=== PATIENT | male | born 1965 | race Caucasian/White ===

== ENCOUNTER 2018-12-14 11:14 | Outpatient (CLI) | payer MEDICAID, SELFPAY ==
[2018-12-15 10:25] LABS: PSA, Screening 1.2 ng/ml (0-3.5)
== END 2018-12-14 11:34 ==
PROVIDERS: PCP Emergency Medicine; Visit Provider Emergency Medicine
DX: Z12.5 Encounter for screening for malignant neoplasm of prostate (principal)
CPT/HCPCS: 36415; 84153

== ENCOUNTER 2020-01-03 09:35 | Outpatient (CLI) | payer MEDICAID, SELFPAY ==
[2020-01-03 13:24] LABS: ALT 50 U/L (16-63); AST 40 U/L (15-37); Albumin 4.3 g/dL (3.4-5.0); Alkaline Phosphatase 59 U/L (46-116); Anion Gap 12.3 mmol/L (3-11); BUN 18 mg/dL (7-18); Bilirubin, Direct 0.14 mg/dL (0.00-0.20); Bilirubin, Total 0.5 mg/dL (0.2-1.0); CO2 23.7 mmol/L (21.0-32.0); CREATININE 0.95 mg/dL (0.70-1.30); Calcium 9.7 mg/dL (8.5-10.1); Chloride 100 mmol/L (98-107); Glucose 106 mg/dL (74-106); Potassium 4.3 mmol/L (3.5-5.1); Sodium 136 mmol/L (136-145); Total Protein 7.8 g/dL (6.4-8.2)
[2020-01-03 14:12] LABS: GGT 248 U/L (15-85)
== END 2020-01-03 09:55 ==
PROVIDERS: PCP Emergency Medicine; Visit Provider Emergency Medicine
DX: I10 Essential (primary) hypertension (principal); Z00.00 Encounter for general adult medical examination without abnormal findings
CPT/HCPCS: 36415; 80048; 80076; 82977

== ENCOUNTER 2020-05-21 00:56 | Outpatient (CLI) | payer MEDICAID, SELFPAY ==
[2020-05-21 08:54] LABS: Anion Gap 10.5 mmol/L (3-11); BUN 18 mg/dL (7-18); CO2 25.5 mmol/L (21.0-32.0); CREATININE 1.13 mg/dL (0.70-1.30); Calcium 9.4 mg/dL (8.5-10.1); Chloride 103 mmol/L (98-107); Glucose 97 mg/dL (74-106); Potassium 4.3 mmol/L (3.5-5.1); Sodium 139 mmol/L (136-145); Uric Acid 8.5 mg/dL (3.5-7.2)
== END 2020-05-21 01:16 ==
PROVIDERS: PCP Emergency Medicine; Visit Provider Emergency Medicine
DX: I10 Essential (primary) hypertension (principal); M10.9 Gout, unspecified
CPT/HCPCS: 36415; 80048; 84550

== ENCOUNTER 2021-01-07 09:59 | Outpatient (REF) | payer MEDICAID, SELFPAY ==
[2021-01-07 14:09] LABS: Anion Gap 10.2 mmol/L (3-11); BUN 21 mg/dL (7-18); CO2 24.8 mmol/L (21.0-32.0); CREATININE 1.2 mg/dL (0.70-1.30); Calcium 9.8 mg/dL (8.5-10.1); Calculated LDL 155 mg/dL (<100); Chloride 101 mmol/L (98-107); Cholesterol 250 mg/dL (<200); Glucose 101 mg/dL (74-106); HDL Cholesterol 57 mg/dL (40-60); Potassium 4.5 mmol/L (3.5-5.1); Sodium 136 mmol/L (136-145); Triglyceride 192 mg/dL (<150)
== END 2021-01-07 10:00 | disposition home or self-care (01) ==
LOC: LBN 09:59
PROVIDERS: PCP Emergency Medicine; Visit Provider Emergency Medicine
DX: E78.5 Hyperlipidemia, unspecified (principal); I10 Essential (primary) hypertension
CPT/HCPCS: 80048; 80061

== ENCOUNTER 2021-05-05 11:04 | Emergency (ER) | payer MEDICAID, SELFPAY ==
[2021-05-05 11:11] VITALS: BP 178/110; PULSE 74; RESP 14; TEMP 36.5; O2SAT 96
--- NOTE | 2021-05-05 11:22 | ED.GENADUL_ITS ---
Discharge Plan Disposition Patient Disposition: HOME Condition: Stable Discharge Details Clinical Impression: Abdominal pain, Proteinuria, Elevated blood pressure reading Primary Care Provider: Adrian Magallon ED Provider: Ladarius Lennon Home Meds and New Rx's Prescriptions: Continued lisinopril 20 mg tablet 20 mg PO DAILY Qty: 90 RF: 4 pravastatin [Pravachol] 20 mg tablet 20 mg PO DAILY Qty: 90 RF: 4 ibuprofen [Advil] 200 MG tablet 3 tab PO DAILY PRNRF: 0 aspirin 81 MG tablet,chewable 81 mg PO DAILY RF: 0 amlodipine [Norvasc] 10 mg tablet 10 mg PO QAM Qty: 90 RF: 4 Discharge Instructions Instructions: Abdominal Pain (ED) Additional Instructions: CT imaging today did not reveal any acute disease. Your urinalysis showed that you had trace protein in your urine. Be sure to discuss this with your doctor. Your blood pressure was noted to be elevated today. Be sure to discuss this with your doctor as adjustments may be been made to your antihypertensive medication. Please contact your primary care physician to arrange follow-up. Return to the ER for any worsening or new concerning symptoms. Stand Alone Forms: Work Release Referrals: Adrian Magallon, DO [Primary Care Provider] - Medical Decision Making 1126? 56-year-old male referred from [facility] with 2 days of right lower quadrant abdominal pain with associated intermittent nausea. Patient is tender lateral right lower abdomen with no palpable hernia. No peritoneal findings. Plan to obtain CT of the abdomen pelvis to assess for acute surgical pathology including acute appendicitis. Consider other etiologies including hernia and less likely renal stone. --Labs reviewed and nondiagnostic. No leukocytosis. Proteinuria noted. 1325 --CT the abdomen pelvis was interpreted by radiology: No acute process, appendix visualized and normal. Results were discussed with the patient. Plan for outpatient follow-up. Usual customary discharge instructions reviewed with patient. HPI General Mode of arrival: ambulatory . Date/Time Provider Initiated Documentation: 05/05/21 11:20 . Limitations to Documentation: no limitations . Information obtained by: patient . HPI Narrative: 56-year-old male with no significant medical history sent from [facility] with right lower quadrant pain. Patient notes he has had right lower quadrant abdominal pain since Wednesday evening. Pain came on suddenly. He had associated nausea without vomiting. Pain is been moderate and persistent, worse postprandially this morning. No other modifiers. No associated fever, no testicular pain, no diarrhea. Related Data Home Medications Medication Instructions Recorded Confirmed ibuprofen [Advil] 3 tab PO DAILY PRN 03/14/13 05/05/21 aspirin 81 mg PO DAILY tab-cap 01/06/17 05/05/21 amlodipine 10 mg tablet 10 mg PO QAM #90 tab 12/23/20 05/05/21 lisinopril 20 mg tablet 20 mg PO DAILY #90 tab 01/07/21 05/05/21 pravastatin 20 mg tablet 20 mg PO DAILY #90 tab-cap 01/07/21 01/07/21 Previous Rx's Medication Instructions Recorded amlodipine 10 mg tablet 10 mg PO QAM #90 tab 12/23/20 lisinopril 20 mg tablet 20 mg PO DAILY #90 tab 01/07/21 pravastatin 20 mg tablet 20 mg PO DAILY #90 tab-cap 01/07/21 Allergies Allergy/AdvReac Type Severity Reaction Status Date / Time hydrochlorothiazide AdvReac Unknown NAUSEA Verified 05/05/21 10:26 General Stated Complaint: Abd Prob MARYJANE: 3 Review of Systems All systems reviewed & are unremarkable except as noted in HPI and below Constitutional Constitutional: Denies fever(s) Gastrointestinal Gastrointestinal: Reports as per HPI, Reports abdominal pain, Reports nausea and Denies vomiting Genitourinary Genitourinary: Reports as per HPI [facility] Medical History Alcohol abuse Alcohol dependence, daily use (08/01/14) Chest pain (01/06/17) neg stress echo 12/15 Depression Dermatitis Gout HTN (hypertension) Hyperlipidemia Hypertension Increased body mass index Vertigo Surgical History Colonoscopy - MAC (03/10/17) Family History Mother , AGE 70 Essential hypertension COPD (chronic obstructive pulmonary disease) Father , AGE 70 COPD (chronic obstructive pulmonary disease) Brother Throat cancer Maternal Grandfather , AGE 83 Heart disease Daughter No problems noted. Social History Smoking/Tobacco Use Status: Never Second Hand Exposure: Yes Smoking risk assessment performed?: Yes Alcohol Intake: current Alcohol Intake frequency: 3 or more drinks per day Alcohol type: hard liquor Drug use: Never Substance use type: does not use Caregiver/Support person: No Household members: significant other Housing: house Communication Needs: None Do you need help understanding health information?: Rarely Pets and animals: Yes Pets and animals: cat(s) Sexually active: Yes Do you think of yourself as: straight/heterosexual Current gender identity: male What is your relationship status?: living with partner How often do you talk on the phone with friends or family?: three or more times per week How often do you get together with friends or relatives?: once per week How often do you attend jehovah's witness or voodoo services?: decline to answer Do you belong to any clubs or organized social groups?: no Panel score (0-1 are the most socially isolated patients): 2 What type of physical activity do you participate in: none Frequency: does not exercise Dolores/Samaritan: None Special dolores needs: No Seatbelt use: sometimes Helmet use: Yes Helmet use: always 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 Do you feel safe at home: Yes Do you feel safe in your relationship?: Yes Exam Const General: cooperative and no acute distress HENMT Mouth: moist mucous membranes Eyes Conjunctivae: normal conjunctivae Sclera: normal sclerae Neck Neck: trachea midline and supple Resp Auscultation: clear to auscultation bilaterally, no rales, no rhonchi and no wheezes Cardio Rate: regular rate and not tachycardic Rhythm: regular rhythm GI Palpation: soft, not firm, no guarding, no masses, not rigid and tender in the RLQ (Laterally, focal); not at McBurney's point, with no rebound tenderness and Rovsing's sign negative Other: no hernia Skin General skin exam: no rashes or lesions noted Neuro General: patient alert, patient awake, patient oriented x3 and tone normal Extrem General: no edema Psych Appearance: grossly normal Mental Status: mental status grossly normal Course Vital Signs Vital signs: Vital Signs Temperature 36.5 C 05/05/21 11:11 Pulse 74 05/05/21 11:11 Respiratory Rate 14 05/05/21 11:11 Blood Pressure 178/110 H 05/05/21 11:11 Pulse Oximetry 96 05/05/21 11:11 Temperature 36.5 C 05/05/21 11:11 Temperature Source Skin 05/05/21 11:11 Pulse 74 05/05/21 11:11 Respiratory Rate 14 05/05/21 11:11 Respiratory Effort Non-Labored 05/05/21 11:17 Blood Pressure 178/110 H 05/05/21 11:11 Blood Pressure Position Sitting 05/05/21 11:11 Pulse Oximetry 96 05/05/21 11:11 Oxygen Delivery Method Room Air 05/05/21 11:11 Oxygen Flow Rate 0 05/05/21 11:11 Pain Level 3 05/05/21 11:17
[2021-05-05 11:54] LABS: Bilirubin Negative (Negative); Blood Negative (Negative); Clarity Clear (Clear); Glucose Negative (Negative); Ketones Negative (Negative); Leukocyte Esterase Negative (Negative); Nitrite Negative (Negative); Specific Gravity >= 1.030 (1.005-1.025); Urobilinogen 0.2 EU/dL (Up TO 0.2)
[2021-05-05] MEDS: Lactated Ringers 1,000 ML 125 ML IV (12:00)
[2021-05-05 12:02] LABS: Abs Immature Grans 0.03 10^3/uL (0.0-0.06); Absolute Basophil Count 0.06 10^3/uL (0.0-0.2); Absolute Eosinophil Count 0.11 10^3/uL (0.0-0.7); Absolute Lymphocyte Count 2.02 10^3/uL (1.2-3.4); Absolute Monocyte Count 0.82 10^3/uL (0.1-0.8); Absolute Neutrophil Count 5.83 10^3/uL (1.2-6.7); Basophils % 0.7; Eosinophils % 1.2; HGB 15.3 g/dL (13.5-17.5); Immature Grans % 0.3; Lymphocytes % 22.8; MCH 31.8 pg (27.0-33.0); MCHC 35.6 % (32.0-36.0); MCV 89.4 fL (80-95); MPV 9.8 fL (8.0-11.0); Monocytes % 9.2; Neutrophils % 65.8; Nucleated RBC 0 %; Platelet Count 200 10^3/uL (130-400); RBC 4.81 10^6/uL (4.36-5.78); RDW 12.4 % (11.8-14.1); RDW-SD 40.8 fL; WBC 8.87 10^3/uL (4.4-10.8)
[2021-05-05 12:06] LABS: Bacteria Negative HPF (Negative); C & S Indicated? No; Casts Negative LPF (Negative); Crystals Negative HPF (Negative); Epithelial Cells Rare HPF (Negative); Mucus Negative (Negative); RBC 0-2 HPF (0-2); WBC 0-2 HPF (0-5)
[2021-05-05 12:27] LABS: ALT 41 U/L (16-63); AST 25 U/L (15-37); Albumin 3.7 g/dL (3.4-5.0); Alkaline Phosphatase 64 U/L (46-116); Anion Gap 10.3 mmol/L (3-11); BUN 22 mg/dL (7-18); Bilirubin, Total 0.5 mg/dL (0.2-1.0); CO2 25.7 mmol/L (21.0-32.0); CREATININE 1.1 mg/dL (0.70-1.30); Calcium 9.1 mg/dL (8.5-10.1); Chloride 102 mmol/L (98-107); Glucose 105 mg/dL (74-106); Potassium 3.8 mmol/L (3.5-5.1); Sodium 138 mmol/L (136-145); Total Protein 7.4 g/dL (6.4-8.2)
[2021-05-05] MEDS: Normal Saline - Diluent 50 ML VIAL IV (13:06)
[2021-05-05] MEDS: Omnipaque 350 MG/ML 100 ML BTL IJ (13:10)
--- NOTE | 2021-05-05 13:11 | DI.CT_ITS ---
Exam(s) CT ABDOMEN PELVIS W EXAM: CT ABDOMEN PELVIS W CLINICAL HISTORY: RLQ pain 2 days TECHNIQUE: Imaging Protocol: Axial computed tomography images with coronal and sagittal reformatted images were created and reviewed CONTRAST MATERIAL: Intravenous: Omnipaque 350 Contrast volume:100 mL Oral: No COMPARISON: No exams were available for comparison FINDINGS: ABDOMEN: Lung Bases: Normal where visualized. Liver: Fatty liver. No measurable mass. Portal, Superior Mesenteric, and Splenic Veins: Unremarkable. Gallbladder and Biliary Tract: No radiodense calculus or dilation. Pancreas: Normal density, no abnormal calcifications or inflammatory process. Spleen: Normal. Adrenals: No masses seen. Kidneys: Normal size, contour and axis. No radiodense stones or obstructive uropathy. No masses seen. Abdominal Aorta: Abdominal portion non-dilated. Mild atherosclerosis. Bowel: No obstruction or bowel wall thickening. Normal appendix is visualized. Peritoneal Cavity: No ascites, collection or mesenteric inflammatory response. No free air. Lymph Nodes: Within normal limits. Bones: Within normal limits for the patient's age. Soft Tissues: Unremarkable. PELVIS: Bladder: Symmetric distention, no gross wall thickening. Reproductive Organs: Mildly enlarged prostate gland. Lymph Nodes: Within normal limits. Bones: Within normal limits for the patient's age. IMPRESSION: 1. No acute abdominal or pelvic process. 2. Normal appendix. 3. Results of this exam have been verbally communicated with provider. RADIATION DOSE DELIVERED: 1,318.65mGy.cm Total DLP DATA REPOSITORY: All CT scans at this facility are submitted to the National Radiology Data Registry (NRDR) Dose Index Registry (DIR) with the [employer] (ACR). RADIATION OPTIMIZATION: All CT scans at this facility use at least one of these dose optimization te chniques: automated exposure control; mA and/or kV adjustment per patient size (includes targeted exa ms where dose is matched to clinical indication); or iterative reconstruction.
[2021-05-05 13:42] VITALS: BP 161/98; PULSE 81; RESP 16; TEMP 36.5; O2SAT 94
== END 2021-05-05 13:40 | disposition home or self-care (01) ==
PROVIDERS: Emergency Provider Student in an Organized Health Care Education/Training Program; PCP Emergency Medicine
DX: R10.31 Right lower quadrant pain (principal); R80.9 Proteinuria, unspecified; R03.0 Elevated blood-pressure reading, without diagnosis of hypertension
CPT/HCPCS: 36415; 80053; 96360; 96361; 99285; 74177; 81003; 81015; 85025; 99283; J3490

== ENCOUNTER 2021-05-16 18:43 | Outpatient (REF) | payer MEDICAID, SELFPAY ==
[2021-05-16 18:25] LABS: Bilirubin Negative (Negative); Blood Negative (Negative); Clarity Clear (Clear); Glucose Negative (Negative); Ketones Negative (Negative); Leukocyte Esterase Negative (Negative); Nitrite Negative (Negative); Specific Gravity >= 1.030 (1.005-1.025); Urobilinogen 0.2 EU/dL (Up TO 0.2); pH 5.5 (5-8)
== END 2021-05-16 18:44 | disposition home or self-care (01) ==
LOC: LBN 18:43
PROVIDERS: PCP Emergency Medicine; Visit Provider Emergency Medicine
DX: R80.9 Proteinuria, unspecified (principal)
CPT/HCPCS: 81003

== ENCOUNTER 2021-09-15 03:06 | Outpatient (CLI) | payer MEDICAID, SELFPAY ==
[2021-09-15 09:12] LABS: Calculated LDL 96 mg/dL (<100); Cholesterol 228 mg/dL (<200); HDL Cholesterol 56 mg/dL (40-60); Triglyceride 382 mg/dL (<150)
[2021-09-15 09:34] LABS: Uric Acid 8.7 mg/dL (3.5-7.2)
== END 2021-09-15 03:07 | disposition home or self-care (01) ==
LOC: LBO 03:06
PROVIDERS: PCP Emergency Medicine; Visit Provider Emergency Medicine
DX: E78.5 Hyperlipidemia, unspecified (principal); R80.9 Proteinuria, unspecified
CPT/HCPCS: 36415; 80061; 84550

== ENCOUNTER 2021-10-30 02:15 | Outpatient (CLI) | payer MEDICAID, SELFPAY ==
[2021-10-30 08:31] LABS: C-Reactive Protein 0.33 mg/dL (0.0-0.3); Uric Acid 6.6 mg/dL (3.5-7.2)
== END 2021-10-30 02:16 | disposition home or self-care (01) ==
LOC: LBO 02:15
PROVIDERS: PCP Emergency Medicine; Visit Provider Emergency Medicine
DX: M10.9 Gout, unspecified (principal)
CPT/HCPCS: 36415; 84550; 86140

== ENCOUNTER 2022-09-15 13:58 | Day surgery (SDC) | payer MEDICAID, SELFPAY ==
--- NOTE | 2022-09-15 13:18 | W.ANESPRE ---
General Info Date of Service Date Performed: 09/15/22 Height: 5 ft 7 in Weight: 101 kg Body Mass Index (BMI): 34.9 Surgical Procedure: Operation Date: 09/15/22 16:40 Proposed Procedure Side Surgeon p Excision Infected Sebaceuos Cyst-Neck Renée Connell, DO Meds Allergies and Home Medications Allergies Allergy/AdvReac Type Severity Reaction Status Date / Time hydrochlorothiazide AdvReac Unknown NAUSEA Verified 08/10/22 12:54 Home Medication Medication Instructions Recorded ibuprofen 200 mg tablet (Advil) 3 tab PO DAILY PRN 03/14/13 aspirin 81 mg chewable tablet 81 mg PO DAILY 01/06/17 indomethacin 25 mg capsule 25 mg PO TID #30 caps 11/04/21 lisinopril 20 mg tablet 20 mg PO DAILY #90 tabs 02/17/22 rosuvastatin 10 mg tablet (Crestor) 10 mg PO DAILY #90 tabs 06/24/22 allopurinol 300 mg tablet 300 mg PO DAILY #90 tabs 08/10/22 amlodipine 10 mg tablet (Norvasc) 10 mg PO QAM #90 tabs 08/10/22 PFSH Active Problems Active Problems: Problem Status Onset Code Sebaceous cyst L72.3 Gout M10.9 Proteinuria R80.9 Vertigo R42 Hydrocele N43.3 Spermatocele N43.40 Alcohol dependence, daily use 08/01/14 F10.20 Dermatitis L30.9 Hyperlipidemia E78.5 Hypertension I10 Increased body mass index R63.8 Medical History Medical History (Updated 08/10/22 @ 13:10 by Maik Mayo NP) Chest pain (01/06/17) neg stress echo 12/15 Surgical History Surgical History Colonoscopy - MAC (03/10/17) Tobacco Smoking/Tobacco Use Status: Never Passive smoking exposure: Yes Second hand exposure: Yes Alcohol Alcohol Intake: current Alcohol intake frequency: 3 or more drinks per day Alcohol type: hard liquor Substance Use Substance use: Never Substance use type: does not use Vital Signs and Lab Results Vital Signs Most Recent Vital Signs in EMR: Temp Pulse Resp BP Pulse Ox 36.6 C 88 18 154/86 H 96 09/15/22 14:12 09/15/22 14:12 09/15/22 14:12 09/15/22 14:12 09/15/22 14:12 Lab Results Blood Type / Crossmatch: No Data to Display Complete Blood Count: No Data to Display Complete Metabolic Panel: No Data to Display Liver Function Panel: No Data to Display Coagulation Panel: No Data to Display Cardiac Panel: No Data to Display Arterial Blood Gas: No Data to Display Venous Blood Gas: No Data to Display Pancreas Panel: No Data to Display Thyroid Panel: No Data to Display Infectious Disease: No Data to Display Blood Cultures: No Data to Display Toxicology Panel: No Data to Display Imaging and Studies Imaging and Studies Study information below may be from another EMR and interpreted by another provider. Please see original notes in EMR for more complete details. Stress Test Summary: 11/2016: normal response to stress, no chest pain. 94% predicted HR Anesthesia Assessment and Plan Anesthesia History Personal History: No History of Anesthesia Complications Family History: No Family History of Anesthesia Complications Exercise Tolerance Exercise Tolerance: Metabolic Equivalents>4 Cardiac & Pulmonary Exam Cardiac Exam: Normal S1/S2 Heart Sounds Pulmonary Exam: Clear Bilateral Breath Sounds Implantable Cardiac Device Does patient have a Pacemaker or an ICD?: No Airway Exam Known Difficult Airway: No Mallampati Class: 3 Mouth Opening: Normal (> 3cm) Thyromental Distance: Greater than 3 cm Neck Range of Motion: Full ROM Neck Circumference: Normal Teeth Condition: Normal Dentition ASA Classification ASA Score: ASA 2 Emergency Case?: No NPO Status NPO Status: NPO Clears >2 hours, Solids >8 hours Anesthesia Plan Resuscitation Status: Full Code Anesthesia Technique: MAC Anesthesia Airway Planned: Natural Airway Monitors Used: Standard Monitors Preoperative Comments:: 57 yo male for cyst removal. Sig PMHx: daily EtOH, HTN, vertigo, never smoker, gout. Discussed MAC with patient, agrees to proceed.
[2022-09-15 14:12] VITALS: BP 154/86; PULSE 88; RESP 18; TEMP 36.6; O2SAT 96
[2022-09-15] MEDS: Gabapentin 300 MG CAP 600 MG PO (14:24)
[2022-09-15] MEDS: Acetaminophen 500 MG TAB 1000 MG PO (14:24)
[2022-09-15] MEDS: Lactated Ringers 1,000 ML 80 ML IV (14:32)
[2022-09-15 14:52] VITALS: BMI 34.9
--- NOTE | 2022-09-15 15:36 | W.PM.HP.N ---
Date of service: 09/15/22 Time of Service: 15:36 Assessment and Plan Assessment and plan (1) Sebaceous cyst: Status: Acute Assessment and plan: ? Plan incision and drainage. We will need to leave it open and to packing. Risks include but not limited to: Bleeding, infection, pneumonia, blood clots, complications of anesthesia. will need to heal by secondary intent and he will need to do daily packing changes. There will be a scar. There is a risk of recurrence. Complications of anesthesia. Other on for told complications. (2) Infected sebaceous cyst of skin: Status: Acute (3) Alcohol dependence, daily use: Status: Acute (4) Hyperlipidemia: Status: Acute (5) Hypertension: Status: Acute (6) Increased body mass index: Status: Acute (7) Gout: Status: Chronic History of Present Illness Narrative: recurrent infected sebaceous cyst R posterior neck. He is not on steroids. He is not diabetic. Its been red hot and swollen for the last 3 days. He has had an incision and drainage done in the past. He is very needle phobic. NOn-smoker He denies chest pain or shortness of breath with physical activity Review of Systems All systems reviewed & are unremarkable except as noted in HPI and below PFSH All Active Problems (Updated 09/15/22 @ 15:49 by Renée Connell DO) Infected sebaceous cyst of skin (Acute) Sebaceous cyst (Acute) Gout (Chronic) Proteinuria (Acute) Vertigo (Acute) Hydrocele (Acute) Spermatocele (Acute) Alcohol dependence, daily use (Acute 08/01/14) Dermatitis (Acute) Hyperlipidemia (Acute) Hypertension (Acute) Increased body mass index (Acute) Medical History (Updated 09/15/22 @ 15:49 by Renée Connell DO) Chest pain (01/06/17) neg stress echo 12/15 Surgical History Colonoscopy - MAC (03/10/17) Family History Mother , AGE 70 Essential hypertension COPD (chronic obstructive pulmonary disease) Father , AGE 70 COPD (chronic obstructive pulmonary disease) Brother Throat cancer Maternal Grandfather , AGE 83 Heart disease Daughter No problems noted. Social History Smoking/Tobacco Use Status: Never Second Hand Exposure: Yes Smoking risk assessment performed?: Yes Alcohol Intake: current Alcohol Intake frequency: 3 or more drinks per day Alcohol type: beer Drug use: Never Substance use type: does not use Caregiver/Support person: No Household members: significant other Housing: house Communication Needs: None Do you need help understanding health information?: Rarely Pets and animals: Yes Pets and animals: cat(s) Sexually active: Yes Do you think of yourself as: straight/heterosexual Current gender identity: male What is your relationship status?: living with partner How often do you talk on the phone with friends or family?: three or more times per week How often do you get together with friends or relatives?: once per week How often do you attend congregation or nondenominational services?: decline to answer Do you belong to any clubs or organized social groups?: no Panel score (0-1 are the most socially isolated patients): 2 What type of physical activity do you participate in: none Frequency: does not exercise Dolores/Pentecostal: None Special dolores needs: No Seatbelt use: sometimes Helmet use: Yes Helmet use: always 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 Do you feel safe at home: Yes Do you feel safe in your relationship?: Yes Meds Allergies and Home Medications Allergies Allergy/AdvReac Type Severity Reaction Status Date / Time hydrochlorothiazide AdvReac Unknown NAUSEA Verified 08/10/22 12:54 Home Medications Medication Instructions Recorded Confirmed Type ibuprofen 200 mg tablet (Advil) 3 tab PO DAILY PRN 03/14/13 09/15/22 History aspirin 81 mg chewable tablet 81 mg PO DAILY 01/06/17 09/15/22 History indomethacin 25 mg capsule 25 mg PO TID #30 caps 11/04/21 09/15/22 Rx lisinopril 20 mg tablet 20 mg PO DAILY #90 tabs 02/17/22 09/15/22 Rx rosuvastatin 10 mg tablet (Crestor) 10 mg PO DAILY #90 tabs 06/24/22 09/15/22 Rx allopurinol 300 mg tablet 300 mg PO DAILY #90 tabs 08/10/22 09/15/22 Rx amlodipine 10 mg tablet (Norvasc) 10 mg PO QAM #90 tabs 08/10/22 09/15/22 Rx Exam Narrative Exam Narrative: PHYSICAL EXAM GENERAL APPEARANCE: Alert, healthy appearance, oriented, in no acute distress SKIN: see below HYDRATION: Well hydrated HEAD, EYES, EARS, NECK, THROAT: Head is normocephalic, pupils equal, round, reactive to light and accommodation, ocular movement intact, sclera clear and no jaundic NECK: 4 x 4 x 4 cm infected sebaceous cyst erythematous, tender, swollen. LUNGS: normal respiration/nl chest excursion. ?Clear to auscultation B/l no R/R/W ?HEART: Regular rate and rhythm, EXTREMITY: No edema or cyanosis? no leg pain, redness, swelling.? No IV infiltration ABDOMEN: Nontender to palpation, soft 4 x 4 x 4 cm infected sebaceous cyst. Results Last Vital Signs Temp 36.6 C 09/15/22 14:12 Pulse 88 09/15/22 14:12 Resp 18 09/15/22 14:12 BP 154/86 H 09/15/22 14:12 Pulse Ox 96 09/15/22 14:12
[2022-09-15] MEDS: ceFAZolin 2 GM/50 ML BAG IVPB (16:55)
[2022-09-15] MEDS: Bupivacaine 0.5% Pres-Free W/EPI 10 ML VIAL (17:23)
[2022-09-15 17:30] VITALS: BP 131/80; PULSE 89; RESP 17; TEMP 36.8; O2SAT 94
--- NOTE | 2022-09-15 17:33 | W.PM.DSUDISC ---
Discharge Plan Disposition Patient Disposition: HOME Discharge Details Attending Provider: Renée Connell Primary Care Provider: Maik Mayo Home Meds and New Rx's Prescriptions: New cephalexin 500 mg tablet 500 mg PO TID 5 Days Qty: 15 0RF tramadol [Ultram] 50 mg tablet 50 mg PO Q6H PRNQty: 7 0RF Continued indomethacin 25 mg capsule 25 mg PO TID Qty: 30 3RF Rx Instructions: administer with food or milk. take one three times daily for five days when gout occurs lisinopril 20 mg tablet 20 mg PO DAILY Qty: 90 4RF ibuprofen [Advil] 200 MG tablet 3 tab PO DAILY PRN aspirin 81 MG tablet,chewable 81 mg PO DAILY Label Comments: States he takes it occasionally. rosuvastatin [Crestor] 10 mg tablet 10 mg PO DAILY Qty: 90 3RF allopurinol 300 mg tablet 300 mg PO DAILY Qty: 90 3RF amlodipine [Norvasc] 10 mg tablet 10 mg PO QAM Qty: 90 3RF Discharge Instructions Additional Instructions: Caring for Your Incision Pain Control Use ice!? Ice keeps the swelling down and swelling is what causes pain.? Never apply ice directly to the skin.? Wrap it in a towel or cloth.? Apply ice 20 minutes on and 20 minutes off for pain control.? Use as needed. Take tylenol 500 mg by mouth with food every 4 hours as needed for pain. Or ibuprofen 600 mg by mouth with food every 6 hours as needed for pain.? Home care ? Always wash your hands before touching your incision. ? Keep the incision clean, dry, and out of water, keep the incision out of water. ? Do not to pick at the scabs. Scabs help protect the wound. ? You can take a shower in 24 hours and wash the incision with soap and water. Pat dry/don?t scrub. No swimming or hot tubs for two weeks. ? Removing the Old Dressing Follow these steps to remove your dressing: ? Wash your hands thoroughly with soap and warm water before and after each dressing change. Remove the old dressing. If it is sticking to your skin, wet it with warm water to loosen it. ? Remove the gauze pads or packing tape from inside your wound. Take a shower and wash w/ soap and water. ? Changing Your Dressing Follow these steps to put a new dressing on: ? Place the gauze pads or packing tape in your wound. Carefully fill in the wound and any spaces under the skin.? Use a cotton tip applicator to gently push the packing material into the wound. ? Cover the wet gauze or packing tape with a large dry dressing pad. Use tape or rolled gauze to hold this dressing in place. ? Wash your hands again when you are finished. ? Make sure any clothing that touches the incision is loose-fitting. This will prevent rubbing. ? Try to avoid from rough play, contact sports, or physical activities for two weeks. This can put you at risk of opening the incision. ? Make sure you avoid doing things that could cause dirt or sweat to get in or on the incision. As your incision heals, the skin may appear pink or red. It may also feel slightly bumpy or raised. This is called a healing ridge. Over time, the color should fade and the raised skin will become less noticeable. -antibiotics -pain plan ? When to seek medical care ? More pain, redness, swelling, bleeding, or foul-smelling discharge around the incision area ? Fever of 101?F (38.3?C) or higher, or as directed by your child's healthcare provider ? Shaking chills ? Vomiting or nausea that doesn?t go away ? Numbness, coldness, or tingling around the incision area, or changes in skin color ? Opening of the sutures or wound Stitches or allie come apart or fall out or surgical tape falls off before 7 days, or as directed by your healthcare provide. F/u in Surgery clinic Wednesday with Dr. Connell [phone] Activity:: see above Remove Dressings/Wound Care:: 24 hours Shower/Bathe:: 24 hours Diet:: As Tolerated DS: Diagnosis Discharge Diagnosis (1) Infected sebaceous cyst of skin: Status: Acute (2) Sebaceous cyst: Status: Acute (3) Alcohol dependence, daily use: Status: Acute (4) Hyperlipidemia: Status: Acute (5) Hypertension: Status: Acute (6) Increased body mass index: Status: Acute (7) Gout: Status: Chronic
--- NOTE | 2022-09-15 17:42 | W.PM.OP ---
Date of service: 09/15/22 Time of Service: 17:42 Operative Note Operative Note DATE OF PROCEDURE: 09/15/22 PRE-OP DIAGNOSIS: Infected sebaceous cyst PROCEDURE: Incision and drainage of sebaceous cyst SURGEON: Renée Connell ANESTHESIA TYPE: Local By Surgeon and MAC Refer to Anesthesia Record ESTIMATED BLOOD LOSS: 10 PATHOLOGY: other COMPLICATIONS: None Patient was transported to: same day Patient's condition: stable Procedure Description: Patient is a 57-year-old male with a recurrent infected sebaceous cyst. And he is here today for incision and drainage and removal. Informed consent is obtained explaining risks of the benefits of the procedure including but not limited to: Bleeding, infection, pneumonia, blood clots, complications from anesthesia, recurrence, scarring, and he understands that he will need to do packing and dressing changes and it will need to heal by secondary intent. Patient is marked in preop. He is brought to the operative suite and placed in the left lateral gluteal decubitus position with all bony surfaces padded. Anesthesia is administered per the department of anesthesia. He was prepped and draped using ChloraPrep scrub solution. Timeout is performed. 30 cc of 1% lidocaine with epi is used for local anesthesia. The lesion is 4 x 4 x 4 cm. A 2 cm elliptical incision is made over the apex. Obvious sebaceous cyst and contents and abscess are expressed. Cultures are taken. The entirety of the cyst is removed including the wall. This is achieved with sharp dissection down to the fat. Electrocautery is used to provide hemostasis. Irrigated with a liter of saline. It is packed with plain packing and sterile compression dressing is applied. Patient tolerated procedure well without complication and transferred to same-day surgery in stable condition. Patient is given instructions in wound care, activity, warning signs, and a follow-up appointment in the office. He was given a prescription for Keflex and Ultram. If there are any questions or concerns contact the office or the ER after hours.
--- NOTE | 2022-09-15 17:47 | W.ANESPOSTOP ---
Postoperative Evaluation Date, Time and Location Date Performed: 09/15/22 Time Performed: 17:47 Patient Location: Day [facility] Unit Vital Signs Most Recent Imported Vital Signs: Most Recent Vital Signs Temp Pulse Resp BP Pulse Ox 36.6 C 88 18 154/86 H 96 09/15/22 14:12 09/15/22 14:12 09/15/22 14:12 09/15/22 14:12 09/15/22 14:12 Most Recent Manually Entered Vital Signs: Adult Blood Pressure: 138/75 Heart Rate: 76 Respirations: 16 Oxygen Saturation (%): 96 Temperature (C): 36.3 C Pain Score (0-10 Scale): 0 Assessment Mental Status: Awake (Alert & Oriented to Patient Baseline) Airway and Respiratory Function: Patent airway with normal (patient baseline) respiratory exam Cardiovascular Function: Hemodynamically Stable Hydration Status: Adequately Hydrated Nausea & Vomiting: No Nausea or Vomiting Pain: Pt. Denies Any Pain Peripheral Nerve Block: Patient did not receive a nerve block
[2022-09-15 17:48] VITALS: BP 138/75; PULSE 76; RESP 16; TEMPC 36.3; O2SAT 96
[2022-09-15 18:00] VITALS: BP 132/82; PULSE 87; RESP 17; TEMP 36.8; O2SAT 93
== END 2022-09-15 18:00 | disposition home or self-care (01) ==
PROVIDERS: PCP Nurse Practitioner Family; Visit Provider Surgery
PROC: (CPT 11424; principal; 2022-09-15 16:30)
DX: L72.3 Sebaceous cyst (principal); I10 Essential (primary) hypertension; E78.5 Hyperlipidemia, unspecified; F10.20 Alcohol dependence, uncomplicated
CPT/HCPCS: 11424; 87070; 87205; J0690; J2250; J2405; J2704

== ENCOUNTER 2023-02-24 09:10 | Outpatient (CLI) | payer MEDICAID, SELFPAY ==
--- NOTE | 2023-02-24 10:19 | DI.US_ITS ---
APPROVED REPORT EXAM: Comprehensive 2D, Doppler, and color-flow Echocardiogram Patient Location: Out-Patient Video Production Assistant: Enoch Velasquez RDMS, RVT Indications: Murmur and periodic CP Other Information Study Quality: Adequate Conclusion Normal left ventricular wall thickness and chamber size. Estimated ejection fraction is 65 to 70%. Wall motion is normal Normal right ventricular size and systolic function Both atria are normal in size Aortic valve is calcified and trileaflet with mild to moderate aortic stenosis. Peak gradient is 34, mean 21 mmHg. Calculated aortic valve area is 1.19 cm??. There is no aortic regurgitation Mildly dilated ascending aorta 3.64 cm Wall motion Left Ventricle The left ventricle is normal size. The left ventricular systolic function is normal. The left ventric ular ejection fraction is within the normal range. There is normal left ventricular wall thickness. T here is normal LV segmental wall motion. There is no ventricular septal defect visualized. LVEF is 65 -70%. Right Ventricle The right ventricle is normal size. The right ventricular systolic function is normal. Atria The left atrium size is normal. The right atrium size is normal. The interatrial septum is intact wit h no evidence for an atrial septal defect. Aortic Valve Aortic valve is calcified. Aortic valve is trileaflet. Mild to moderate aortic stenosis. Highest mean aortic valve gradient is 20.7 mmHg. Peak aortic valve gradient is 34.2 mmHg. Calculated HELEN by the c ontinuity equation is 1.19 cm2. No aortic regurgitation is present. Mitral Valve The mitral valve is normal in structure. No evidence of mitral valve stenosis. Trace mitral regurgita tion. Tricuspid Valve The tricuspid valve is normal in structure. There is no tricuspid valve stenosis. Trace tricuspid reg urgitation. Unable to assess PA pressure. Pulmonic Valve The pulmonary valve is normal in structure. There is no pulmonic valvular stenosis. There is no pulmo tre valvular regurgitation. Great Vessels The aortic root is normal in size. The pulmonary artery is normal. The ascending aorta is mildly dila ramesh. Aortic arch is not well visualized. IVC is normal in size and collapses >50% with inspiration. Pericardium There is no pericardial effusion. 2D Dimensions IVSD d PLAX 1.05 cm M: 0.6-1.2 LV Vol A2C d MOD 84.7 mL LVPW d PLAX 1.06 cm M: 0.6 - 1.2 LV Vol A4C d MOD 140.3 mL LVID d PLAX 5.02 cm M: 4.2 - 5.8 LA vol/ BSA A4C s A-L 21.1 mL/m2 LVDs 2.97 cm M: 2.5 - 4.0 LA Area A4C s MOD 16.63 cm2 Ao Root d 2.73 cm M: 3.1 - 3.7 LV EF A4C MOD 65.1 % Ao Asc Diam d 3.64 cm M: 2.6 - 3.4 LV EF A2C MOD 69.5 % LV EF Teichholz 71.4 % LV EF Biplane MOD 64.4 % LVEF (Villela's) 64.39 % M: 52 - 72 SV 70.69 mL LV Volume 79.85 mL M: 62 - 150 SV Index 32.15 mL/m2 LV Volume Index 36.29 mL/m2 M: 34 - 74 LV Vol Biplane MOD 109.8 mL FS 40.80 % M-Mode TAPSE 2.48 cm (M/F) >1.7 LV Diastology MV E' medial 0.100 (>0.07 m/s) E/A Ratio 0.9 LV E/e MED 8.95 (<14) MV E Vmax 0.90 (0.4-1.3 m/s) MV E' lateral 0.116 (>0.1 m/s) MV A Vmax 0.95 (0.4-1.3 m/s) LV E/e LAT 7.70 (<14) MV E/A Ratio 0.92 MV E/E' medial 8.98 MV E/E' lateral 7.75 Aortic Valve LVOT Area 2.85 cm2 AoV Area Vmax 1.19 cm2 LVOT Vmax 1.22 m/s AoV Area/ BSA (Vmax) 0.54 cm2/m2 LVOT Mean Cesar. 0.90 m/s HELEN Mean Cesar. 1.18 cm2 LVOT Peak Grad 5.9 mmHg HELEN Mean Cesar. Index 0.53 cm2/m2 LVOT Mean Grad 3.5 mmHg LVOT VTI 0.250 m LVOT Diam s 1.90 cm AoV Vmax 2.92 m/s Velocity Ratio 0.42 AoV Mean Cesar. 2.19 m/s AoV Peak Grad 34.2 mmHg LVOT SV 71.34 mL AoV Mean Grad 20.7 mmHg AoV VTI 0.544 m AoV Area VTI 1.31 cm2 AoV Area/ BSA (VTI) 0.60 cm/m2 Mitral Valve MV DT 214 (160-240 msec) MV PHT 62 msec MV Area PHT 3.54 cm2 MV VTI 0.329 m MV Area VTI 2.17 (4.0-6.0 cm2) Pulmonary Valve PV Vmax 1.78 (0.5-1.5 m/s) RVOT Peak Gr. 3.61 mmHg PV Peak Grad 12.6 mmHg RVOT Mean Gr. 1.95 mmHg PV Mean Grad 6.6 mmHg RVOT VTI 0.182 m PV VTI 0.281 m RVOT Vmax 0.95 m/s Tricuspid Valve RA Pressure 3.00 mmHg
== END 2023-02-24 09:30 ==
LOC: DI 09:10
PROVIDERS: PCP Nurse Practitioner Family; Visit Provider Nurse Practitioner Family
DX: R01.1 Cardiac murmur, unspecified (principal)
CPT/HCPCS: 93306

== ENCOUNTER 2023-02-26 02:03 | Outpatient (CLI) | payer MEDICAID, SELFPAY ==
[2023-02-26 08:38] LABS: CREATININE 1.1 mg/dL (0.70-1.30); Calculated LDL 97 mg/dL (<100); Cholesterol 207 mg/dL (<200); HDL Cholesterol 68 mg/dL (40-60); Potassium 3.8 mmol/L (3.5-5.1); Triglyceride 210 mg/dL (<150)
[2023-02-26 20:52] LABS: PSA, Screening 1.2 ng/mL (<=3.5)
== END 2023-02-26 02:04 | disposition home or self-care (01) ==
LOC: LBO 02:03
PROVIDERS: PCP Nurse Practitioner Family; Visit Provider Nurse Practitioner Family
DX: I10 Essential (primary) hypertension (principal); E78.5 Hyperlipidemia, unspecified; R35.0 Frequency of micturition; Z12.5 Encounter for screening for malignant neoplasm of prostate
CPT/HCPCS: 36415; 80061; 84153; 82565; 84132

== ENCOUNTER 2024-03-07 04:36 | Outpatient (CLI) | payer MEDICAID, SELFPAY ==
[2024-03-07 08:05] LABS: CREATININE 1.1 mg/dL (0.70-1.30); Calculated LDL 97 mg/dL (<100); Cholesterol 197 mg/dL (<200); Estimated GFR 77.81 (mL/min/1.73m2); HDL Cholesterol 58 mg/dL (40-60); Potassium 4.2 mmol/L (3.5-5.1); Triglyceride 212 mg/dL (<150)
[2024-03-07 08:10] LABS: Hemoglobin A1C 5.5 % (<5.7)
== END 2024-03-07 04:37 | disposition home or self-care (01) ==
LOC: LBO 04:36
PROVIDERS: PCP Nurse Practitioner Family; Visit Provider Nurse Practitioner Family
DX: I10 Essential (primary) hypertension (principal); Z13.1 Encounter for screening for diabetes mellitus; E78.5 Hyperlipidemia, unspecified
CPT/HCPCS: 36415; 80061; 82565; 83036; 84132

== ENCOUNTER → 2024-03-15 02:30 | Outpatient (CLI) | payer MEDICAID, SELFPAY ==
--- NOTE | 2024-03-15 07:30 | DI.US_ITS ---
APPROVED REPORT EXAM: Comprehensive 2D, Doppler, and color-flow Echocardiogram Patient Location: Out-Patient Inventory Control Specialist: Vita Linares RDCS (AE) Indications: Heart Murmur Other Information Study Quality: Adequate Conclusion Normal left ventricular wall thickness and chamber isze. EF is 59%. Wall motion is normal Normal right ventricular size and function both atria are normal in size. The aortic valve is calcified and probably trileaflet. There is moderate aortic stenosis. Peak gradie nt is41, mean 27 mmHg.Calculated aortic valve area is 1 cm2. There is no aortic regurgitation Compared to echocardiogram from 2022, degree of aortic stenosis has worsened, now moderate Wall motion Left Ventricle The left ventricle is normal size. The left ventricular systolic function is normal. The left ventric ular ejection fraction is within the normal range. There is normal left ventricular wall thickness. T here is normal LV segmental wall motion. There is no ventricular septal defect visualized. LVEF is 59 %. Right Ventricle The right ventricle is normal size. The right ventricular systolic function is normal. Atria The left atrium size is normal. The right atrium size is normal. The interatrial septum is intact wit h no evidence for an atrial septal defect. Aortic Valve Aortic valve is calcified. Aortic valve is probably trileaflet. Moderate aortic stenosis. Peak aortic valve gradient is 41.5mmHg. Highest mean aortic valve gradient is 27.39mmHg. Calculated HELEN by the c ontinuity equation is 1.0cm2. No aortic regurgitation is present. Mitral Valve The mitral valve is normal in structure. No evidence of mitral valve stenosis. Trace mitral regurgita tion. Tricuspid Valve The tricuspid valve is normal in structure. There is no tricuspid valve stenosis. Trace tricuspid reg urgitation. Unable to assess PA pressure. Pulmonic Valve Pulmonic valve is not well visualized. There is no pulmonic valvular stenosis. There is no pulmonic v alvular regurgitation. Great Vessels The aortic root is normal in size. The ascending aorta is normal in size. Aortic arch is not well vis ualized. The IVC collapses <50% with inspiration. Pericardium There is no pericardial effusion. 2D Dimensions IVSD d PLAX 0.90 cm M: 0.6-1.2 Ao Root d 2.68 cm M: 3.1 - 3.7 LVPW d PLAX 0.89 cm M: 0.6 - 1.2 Ao Asc Diam d 3.29 cm M: 2.6 - 3.4 LVID d PLAX 5.13 cm M: 4.2 - 5.8 LVDs 3.53 cm M: 2.5 - 4.0 LV EF Teichholz 58.7 % FS 31.27 % LV EDV (Teich) 125.7 mL LV ESV (Teich) 51.9 mL M-Mode TAPSE 2.40 cm (M/F) >1.7 Auto EF LV EDV A4C 133.0 mL LV EDV A2C 125.9 mL LV EDV BP 129.3 mL LV ESV A4C 55.4 mL LV ESV A2C 53.5 mL LV ESV BP 54.4 mL LVEF(%) A4C 58.3 % LVEF(%) A2C 57.5 % LVEF(%) BP 57.9 % LV SV A4C 77.6 ml LV SV A2C 72.5 ml LV SV BP 74.9 ml LV CO A4C 5.7 L/min LV CO A2C 5.4 L/min LV CO BP 5.5 L/min HR A4C 73.18 BPM HR A2C 74.54 BPM LV EDV Index (BP) LA Volume LA Length A4C 5.5 cm LA Length A2C 5.0 cm LA Area A4C s 16.91 cm2 LA Area A2C s 14.93 cm2 LA Vol A4C A-L 44.23 mL LA Vol A2C A-L 37.78 mL LA Vol Biplane A-L 42.8 mL LA Vol/BSA A4C A-L LA Vol/BSA A2C A-L LA Vol/BSA BP A-L 19.1 mL/m2 LA Vol A4C MOD 40.5 mL LA Vol A2C MOD 35.9 mL LA Vol BP MOD 39.8 mL RA Volume RA Area A4C 15.7 cm2 RA ESV A4C (A-L) 42.2mL RA Vol/BSA A4C A-L RA Length A4C 4.9 cm RA ESV A4C (MOD) 39.9mL LV Diastology MV E' medial 0.087 (>0.07 m/s) MV E Vmax 0.83 (0.4-1.3 m/s) MV E/E' MED 9.46 (<14) MV A Vmax 1.00 (0.4-1.3 m/s) MV E' lateral 0.097 (>0.1 m/s) E/A Ratio 0.8 MV E/E' LAT 8.51 (<14) MV E' Average 0.092 m/s MV E/E'(average) 8.96 Aortic Valve AoV Vmax 3.22 m/s LVOT Vmax 1.03 m/s AoV Peak Grad 41.5 mmHg LVOT Peak Grad 4.2 mmHg AoV Area (Vmax) 1.01 cm2 LVOT VTI 0.215 m AoV VTI 0.681 m LVOT Mean Grad 2.6 mmHg AoV Mean Cesar. 2.52 m/s LVOT SV 68.00 mL AoV Mean Grad 27.4 mmHg LVOT Diam s 2.00 cm AoV Area (VTI) 1.00 cm2 Velocity Ratio 0.32 Mitral Valve MV DT 221 (160-240 msec) MV Vmax TIPS 1.00 m/s MV Mean Grad 1.7 (<2mmHg) MV VTI 0.300 m Pulmonary Valve PV Vmax 1.82 (0.5-1.5 m/s) RVOT Vmax 0.95 m/s PV Peak Grad 13.2 mmHg RVOT Peak Gr. 3.6 mmHg PV Mean Cesar 1.12 m/s RVOT VTI 0.192 m PV Mean Grad 6.1 mmHg RVOT Mean Gr. 2.0 mmHg Tricuspid Valve RA Pressure 8.00 mmHg TV S' 0.13 m/s
== END ==
PROVIDERS: PCP Nurse Practitioner Family; Visit Provider Nurse Practitioner Family
DX: R01.1 Cardiac murmur, unspecified (principal)
CPT/HCPCS: 93306

== ENCOUNTER 2025-03-08 02:29 | Outpatient (CLI) | payer MEDICAID, SELFPAY ==
[2025-03-08 08:14] LABS: Hemoglobin A1C 5.4 % (<5.7)
[2025-03-08 08:19] LABS: ALT 43 U/L (16-63); AST 28 U/L (15-37); Alkaline Phosphatase 64 U/L (46-116); Anion Gap 9.6 mmol/L (3-11); BUN 14 mg/dL (7-18); Bilirubin, Total 0.6 mg/dL (0.2-1.0); CO2 26.4 mmol/L (21.0-32.0); Calcium 9.5 mg/dL (8.5-10.1); Calculated LDL 94 mg/dL (<100); Chloride 103 mmol/L (98-107); Cholesterol 203 mg/dL (<200); Glucose 107 mg/dL (74-106); HDL Cholesterol 65 mg/dL (>or=40); Potassium 4.4 mmol/L (3.5-5.1); Sodium 139 mmol/L (136-145); Total Protein 7.7 g/dL (6.4-8.2); Triglyceride 222 mg/dL (<150)
[2025-03-08 18:37] LABS: PSA, Screening 1.8 ng/mL (<=3.5)
== END 2025-03-08 02:30 | disposition home or self-care (01) ==
LOC: LBO 02:29
PROVIDERS: PCP Nurse Practitioner Family; Visit Provider Nurse Practitioner Family
DX: F10.20 Alcohol dependence, uncomplicated (principal); Z13.220 Encounter for screening for lipoid disorders; E78.2 Mixed hyperlipidemia; Z13.1 Encounter for screening for diabetes mellitus; Z12.5 Encounter for screening for malignant neoplasm of prostate
CPT/HCPCS: 36415; 80053; 80061; 84153; 83036